=== PATIENT | female | born 1995 | race Caucasian/White ===

== ENCOUNTER 2017-07-28 20:45 | Emergency (ER) | payer BC, SELFPAY ==
[~2017-07-28 20:45] MED LIST: ISOVUE-370 76%-LOCM 1 ML ONE
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
[2017-07-28 22:25] LABS: ALT (SGPT) 21 U/L (8-55); AST (SGOT) 21 U/L (5-34); Albumin 4.4 g/dL (3.5-5.0); Alkaline Phosphatase 115 U/L (40-150); Anion Gap 15 mmol/L (10-20); BUN (Urea Nitrogen) 12 mg/dL (7.0-18.7); Bilirubin, Total 0.3 mg/dL (0.2-1.2); Calc. Creatinine Clearance 0 mL/min (70-130); Calcium 9.7 mg/dL (7.8-10.44); Carbon Dioxide 23 mmol/L (22-29); Chloride 104 mmol/L (98-107); Estimated GFR-MDRD Greater than 90; Globulin 3.1 g/dL (2.4-3.5); Glucose 83 mg/dL (70-105); Potassium 4.2 mmol/L (3.5-5.1); Protein, Total 7.5 g/dL (6.0-8.3); Sodium 138 mmol/L (136-145)
[2017-07-28 22:28] LABS: #Basophils 0.1 thou/uL (0.0-0.2); #Eosinphils 0.1 thou/uL (0.0-0.7); #Lymphocytes 2.8 thou/uL (1.20-3.40); #Monocytes 0.5 thou/uL (0.11-0.59); #Neutrophils 8.5 thou/uL (1.40-6.50); %Basophils 0.9 % (0.0-1.0); %Eosinophils 1.1 % (0.0-10.0); %Lymphocytes 22.9 % (21.0-51.0); %Monocytes 4.4 % (0.0-10.0); %Neutrophils 70.7 % (42.0-75.0); Hemoglobin 13.4 g/dL (12.0-16.0); Mean Corpuscular HGB CONC 33.1 g/dL (32.0-36.0); Mean Corpuscular Hemoglobin 26.7 pg (27.0-31.0); Mean Corpuscular Volume 80.5 fl (81.0-99.0); Mean Platelet Volume 7.2 fL (7.4-10.4); Platelet Count 295 thou/uL (130-400); Red Blood Cell (RBC) Count 5.04 mill/uL (4.20-5.40)
[2017-07-28] MEDS ORDERED: Hydrocodone-Acetamin 15 ML UDCUP ONE (22:35)
[2017-07-28 22:40] LABS: Pregnancy Test - Urine (BHCG) Negative (Negative); Pregu Control Background? CLEAR/WHITE (CLR/WHITE); Pregu Control Bar Appear? YES (CONTROL BAR)
[2017-07-28 22:41] LABS: Bilirubin Negative (Negative); Blood, Urine Trace (Negative); Clarity CLEAR (Clear); Glucose, Urine (Dipstick) Negative (Negative); Leukocyte Negative (Negative); Nitrite Negative (Negative); Protein, Urine (Dipstick) Negative (Neg-Trace); Urobilinogen 0.2 mg/dL (0.2-1.0)
[2017-07-28 22:42] LABS: Bacteria/HPF None Seen HPF (None Seen); Hyaline Casts/LPF 0-3 HYALINE CAST LPF (0-3 Hyaline); Pathc Cast-AUWi Flag 0.43 (0-2.49); Squamous Epithelial 0-3 HPF (0-3); WBC/HPF 0-3 HPF (0-3)
[2017-07-28] MEDS ORDERED: Ketorolac Tromethamine 30 MG/ML VIAL ONE (22:47)
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
== END 2017-07-29 00:18 | disposition home or self-care (01) ==
LOC: ERS 20:45
DX: S30.1XXA Contusion of abdominal wall, initial encounter (principal); S20.219A Contusion of unspecified front wall of thorax, initial encounter; V89.2XXA Person injured in unspecified motor-vehicle accident, traffic, initial encounter; W22.11XA Striking against or struck by driver side automobile airbag, initial encounter
CPT/HCPCS: 36415; 71045; 74177; 80053; 81003; 81015; 81025; 85025; 96374; J1885

== ENCOUNTER 2018-07-11 12:07 | Outpatient (CLI) | payer BC | END 2018-07-11 12:08 | disposition home or self-care (01) | LOC: DTY/OP 12:07 | PROVIDERS: ATTEND Surgery | DX: E66.01 Morbid (severe) obesity due to excess calories (principal) | CPT/HCPCS: 97802 ==

== ENCOUNTER 2018-07-16 10:30 | Outpatient (CLI) | payer BC ==
--- NOTE | 2018-07-16 11:43 | RAD ---
FXR Barium Swallow Esophagus History: [Gastroesophageal reflux] Comparison: None. Findings: Patient was brought to the fluoroscopy suite. Questions were inserted. Rn Clinical Research radiograph of the chest was normal. Patient was given multiple consistencies contrast material. Secondary peristalsis was normal. Normal size and angle of the lap band. No extrinsic mass effect of the esophagus. No tertiary contractions. No reflux. When the patient was put in the GONZÁLES position the primary and secondary peristalsis was again normal. No reflux. No extensive mass effect, diverticula, or stricture. Impression: Normal upper GI examination.
== END 2018-07-16 10:31 | disposition home or self-care (01) ==
LOC: RAD 10:30
PROVIDERS: ATTEND Surgery
DX: K21.9 Gastro-esophageal reflux disease without esophagitis (principal)
CPT/HCPCS: 74220